=== PATIENT | female | born 1985 | race Caucasian/White ===

== ENCOUNTER 2016-07-05 09:46 | Emergency (ER) | payer SELFPAY ==
[2016-07-05 11:15] LABS: HCG URINE NEGATIVE (NEGATIVE)
== END 2016-07-05 12:08 | disposition home or self-care (01) ==
LOC: D.ER 09:46
PROVIDERS: Nurse Practitioner Family
DX: S16.1XXA Strain of muscle, fascia and tendon at neck level, initial encounter (principal); V43.52XA Car driver injured in collision with other type car in traffic accident, initial encounter; Y93.89 Activity, other specified; Y92.410 Unspecified street and highway as the place of occurrence of the external cause; M62.838 Other muscle spasm

== ENCOUNTER 2019-09-15 11:00 | Outpatient (CLI) | payer MEDICAID | END 2019-09-15 12:00 | disposition home or self-care (01) | LOC: D.MAMMO 11:00 | PROVIDERS: ATTEND Nurse Practitioner Family | DX: N63.15 Unspecified lump in the right breast, overlapping quadrants (principal) ==